=== PATIENT | male | born 1945 | race Caucasian/White ===

== ENCOUNTER 2017-06-23 20:55 | Outpatient (CLI) | payer MEDICARE, OTHER | END 2017-06-23 20:56 | disposition critical access hospital (66) | LOC: EMS 20:55 | PROVIDERS: ATTEND Surgery | DX: R60.9 Edema, unspecified (principal); R20.0 Anesthesia of skin; R21 Rash and other nonspecific skin eruption | CPT/HCPCS: A0425; A0427 ==

== ENCOUNTER 2017-06-23 21:11 | Emergency (ER) | payer MEDICARE, OTHER ==
[2017-06-23] MEDS ORDERED: FAMOTIDINE 20 MG/2 ML VIAL IVP STA (21:20)
[2017-06-23] MEDS ORDERED: methylPREDNISolone SUCCINATE 125 MG/2 ML VIAL IVP STA (21:20)
--- NOTE | 2017-06-23 23:00 | ED Physician Documentation ---
PD HPI SKIN - Stated complaint Stated Complaint: ALLERGIC REACTION - Chief complaint Chief Complaint: Allergic Rx - History obtained from History obtained from: Patient, EMS - History of Present Illness Timing - onset: Today Timing - details: Abrupt onset Location: RUE, LUE Quality / character: Itchy, Swelling Improved by: Benadryl Contributing factors: Exposed to food Similar symptoms before: No diagnosis Recently seen: Not recently seen - Additional information Additional information: Patient is a 72 year old male who is presenting to the emergency department for allergic reaction. patient states that he ate about 12 cashews and then his face started swelling. patient denies having an allergy to cashews in the past. patient took 50mg of benadryl before calling ems. When ems arrived patient did have facial swelling and redness of his hands. Upon initial evaluation in the emergency department patient had swollen upper lip but stated that he was starting to feel better. Review of Systems Constitutional: denies: Fever, Chills Eyes: denies: Discharge, Irritation Ears: reports: Reviewed and negative Nose: denies: Rhinorrhea / runny nose Throat: denies: Sore throat Cardiac: denies: Chest pain / pressure, Palpitations Respiratory: denies: Wheezing GI: reports: Abdominal Pain. denies: Nausea, Vomiting : reports: Reviewed and negative Skin: reports: Rash Neurologic: denies: Headache Immunocompromised: denies: Immunocompromised PD PAST MEDICAL HISTORY - Past Medical History Past Medical History: Yes Cardiovascular: Hypertension Respiratory: Other Neuro: None Endocrine/Autoimmune: None GI: None : None HEENT: None Psych: None Musculoskeletal: None Derm: Psoriasis, Rosacea - Past Surgical History Past Surgical History: No - Present Medications Home Medications: Ambulatory Orders Medication Instructions Recorded Confirmed Aspirin 81 06/23/17 Epinephrine [Epipen 2-Tushar] 0.3 mg IJ ONCE #1 auto.injct 06/23/17 Hydrochlorothiazide 12.5 mg PO DAILY 06/23/17 06/23/17 NIFEdipine [Procardia Xl] 30 mg PO DAILY 06/23/17 06/23/17 Sildenafil Citrate [Viagra] 06/23/17 - Allergies Allergies/Adverse Reactions: Allergies Allergy/AdvReac Type Severity Reaction Status Date / Time Penicillins Allergy Unknown Verified 06/23/17 21:18 - Social History Does the pt smoke?: No Smoking Status: Never smoker Does the pt drink ETOH?: Yes ETOH Use: Wine Does the pt have substance abuse?: No - Immunizations Immunizations are current?: Yes - POLST Patient has POLST: No PD ED PE NORMAL - Vitals Vital signs reviewed: Yes - General General: Alert and oriented X 3, No acute distress - HEENT HEENT: Atraumatic, PERRL - Cardiac Cardiac: RRR - Respiratory Respiratory: No respiratory distress - Abdomen Abdomen: Soft - Neuro Neuro: Alert and oriented X 3 Eye Opening: Spontaneous Motor: Obeys Commands Verbal: Oriented GCS Score: 15 PD ED PE EXPANDED - HEENT HEENT: Other (swelling of the upper lip and tongue, no throat swelling) - Respiratory Respiratory: No: Accessory mm use, Retractions, Wheezing - Derm Derm: Rash (mild erythema of bilateral hands) Results - Vitals Vitals: Vital Signs - 24 hr 06/23/17 06/23/17 06/23/17 21:15 21:58 22:22 Temperature 36.6 C Heart Rate 83 57 L 58 L Respiratory 18 16 18 Rate Blood Pressure 111/74 101/83 H 111/65 O2 Saturation 92 92 94 Oxygen O2 Source Room air PD MEDICAL DECISION MAKING - ED course Complexity details: reviewed old records, reviewed results, re-evaluated patient , considered differential, d/w patient, d/w family ED course: Patient was seen and examined at bedside. patient had taken benadryl in the field and was already feeling better. patient was treated with solumedrol and pepcid. Patient was observed in the emergency department for two hours. Patient's symptoms continued to improve. Patient had no swelling or airway involvement. patient required no further work up and was stable for discharge with outpatient follow up. Departure - Departure Disposition: 01 Home, Self Care Clinical Impression: Allergic urticaria Condition: Good Instructions: ED Allergic Reaction General Other Follow-Up: primary,care provider [Other] - Within 1 week Prescriptions: Epinephrine [Epipen 2-Tushar] 0.3 mg IJ ONCE #1 auto.injct Comments: Your symptoms today are being caused by an allergic reaction, likely the cashews. You should avoid cashew in the future. If you have another allergic reaction you can take benadryl and pepcid. If your symptoms are severe you can use the epipen. You should come to the emergency department for facial or throat swelling, difficulty breathing, nausea or vomiting that coincides with an allergic reaction.
[2017-06-23 23:56] VITALS: BP 146/62
== END 2017-06-23 23:58 | disposition home or self-care (01) ==
LOC: EDUNIT# → ED 21:11
DX: L50.0 Allergic urticaria (principal); L71.9 Rosacea, unspecified; L40.9 Psoriasis, unspecified; I10 Essential (primary) hypertension; Z79.82 Long term (current) use of aspirin
CPT/HCPCS: 93005; 96374; 99284

== ENCOUNTER 2017-09-06 10:01 | Outpatient (CLI) | payer MEDICARE, OTHER ==
--- NOTE | 2017-09-06 12:17 | XRAY Report ---
Procedure Date: 09/06/2017 Accession Number: [id number] / [id number] Procedure: XR - Chest 2 View X-Ray CPT Code: 41853 FULL RESULT: EXAM: CHEST RADIOGRAPHY EXAM DATE: 09/06/2017 10:13 AM. CLINICAL HISTORY: Cough for 4 days. COMPARISON: 07/01/2015. TECHNIQUE: 2 views. FINDINGS: Lungs/Pleura: Bilateral lower lobe airspace consolidation, right greater than left. No pleural effusions. No pneumothorax. No vascular congestion. Mediastinum: Heart size is normal. Aortic atherosclerosis. Other: Degenerative changes of the thoracic spine. IMPRESSION: 1. Bilateral lower lobe pneumonia. RADIA
== END 2017-09-06 10:02 | disposition home or self-care (01) ==
LOC: DI 10:01
PROVIDERS: ATTEND Internal Medicine
DX: J18.9 Pneumonia, unspecified organism (principal)
CPT/HCPCS: 71046

== ENCOUNTER 2017-11-30 08:00 | Outpatient (CLI) | payer MEDICARE, OTHER ==
[2017-11-30 12:54] LABS: BASOPHILS % (AUTO) 0.9 %; EOSINOPHILS # (AUTO) 0.3 10^3/uL (0.0-0.7); EOSINOPHILS % (AUTO) 7.8 %; HGB - HEMOGLOBIN 14.3 g/dL (14.0-18.0); LYMPHOCYTES # (AUTO) 1.2 10^3/uL (1.5-3.5); LYMPHOCYTES % (AUTO) 29.3 %; MEAN CORPUSCULAR HEMOGLOBIN 30.2 pg (27.0-31.0); MEAN CORPUSCULAR HGB CONC 34.3 g/dL (32.0-36.0); MEAN CORPUSCULAR VOLUME 88.1 fL (80.0-94.0); MONOCYTES # (AUTO) 0.4 10^3/uL (0.0-1.0); MONOCYTES % (AUTO) 8.8 %; NEUTROPHILS # (AUTO) 2.1 10^3/uL (1.5-6.6); NEUTROPHILS % (AUTO) 53.2 %; PLT - PLATELET COUNT 244 10^3/uL (130-450); RED BLOOD COUNT 4.73 10^6/uL (4.70-6.10); RED CELL DISTRIBUTION WIDTH 14.8 % (12.0-15.0)
[2017-11-30 13:13] LABS: ALBUMIN 4.3 g/dL (3.2-5.5); ALBUMIN/GLOBULIN RATIO 1.5 (1.0-2.2); ALKALINE PHOSPHATASE 55 IU/L (42-121); ALT ALANINE AMINOTRANSFERASE 23 IU/L (10-60); AST ASPARTATE AMINOTRANSFERASE 26 IU/L (10-42); BILIRUBIN,TOTAL 0.6 mg/dL (0.2-1.0); BUN - BLOOD UREA NITROGEN 22 mg/dL (6-20); CALCIUM 9.4 mg/dL (8.5-10.3); CARBON DIOXIDE - CO2 29 mmol/L (21-32); CHLORIDE 100 mmol/L (101-111); CHOL/HDL RATIO 2.8 (<5.0); CHOLESTEROL 223 mg/dL; CREATININE 0.8 mg/dL (0.6-1.2); GFR - MDRD 95 (>89); GLUCOSE 87 mg/dL (70-100); HDL CHOLESTEROL 81 mg/dL; LDL CHOLESTEROL,CALCULATED 131 mg/dL; LDL/HDL RATIO 1.6 (<3.6); SODIUM 137 mmol/L (135-145); TOTAL PROTEIN 7.2 g/dL (6.7-8.2); VLDL CHOLESTEROL 11 mg/dL
[2017-12-01 13:52] LABS: HEPATITIS C ANTIBODY NON-REACTIVE (NON-REACTIVE)
== END 2017-11-30 08:01 ==
LOC: LAB.N 08:00
PROVIDERS: ATTEND Internal Medicine
DX: J45.909 Unspecified asthma, uncomplicated (principal); E78.5 Hyperlipidemia, unspecified; N52.9 Male erectile dysfunction, unspecified; Z12.5 Encounter for screening for malignant neoplasm of prostate; I10 Essential (primary) hypertension; Z79.899 Other long term (current) drug therapy; Z72.89 Other problems related to lifestyle
CPT/HCPCS: 80053; 80061; 84443; 85025; 86803; G0103; 36415; 83721; 84153

== ENCOUNTER 2018-02-01 08:00 | Outpatient (CLI) | payer MEDICARE, OTHER ==
[2018-02-01 12:42] LABS: ALT ALANINE AMINOTRANSFERASE 55 IU/L (10-60); AST ASPARTATE AMINOTRANSFERASE 41 IU/L (10-42); LDL CHOLESTEROL,DIRECT 97 mg/dL
== END 2018-02-01 08:01 | disposition home or self-care (01) ==
LOC: LAB.N 08:00
PROVIDERS: ATTEND Internal Medicine
DX: E78.5 Hyperlipidemia, unspecified (principal)
CPT/HCPCS: 36415; 83721; 84450; 84460

== ENCOUNTER 2018-02-24 09:31 | Day surgery (SDC) | payer MEDICARE, OTHER ==
[2018-02-24] MEDS ORDERED: LACTATED RINGERS 1,000 ML IV ONE (10:00)
[2018-02-24] MEDS ORDERED: fentaNYL 100 MCG/2 ML VIAL IVP ONE (11:10)
[2018-02-24] MEDS ORDERED: MIDAZOLAM 2 MG/2 ML VIAL IVP ONE (11:10)
[2018-02-24 12:01] VITALS: BP 133/66
== END 2018-02-24 09:32 | disposition home or self-care (01) ==
LOC: SDS 09:31
PROVIDERS: ATTEND Internal Medicine Gastroenterology
PROC: 0DBL8ZZ Excision of Transverse Colon, Via Natural or Artificial Opening Endoscopic (ICD-10-PCS; principal; 2018-02-24 10:45)
DX: Z12.11 Encounter for screening for malignant neoplasm of colon (principal); D12.3 Benign neoplasm of transverse colon; K57.30 Diverticulosis of large intestine without perforation or abscess without bleeding; K64.8 Other hemorrhoids; I10 Essential (primary) hypertension; Z86.010 Personal history of colon polyps
CPT/HCPCS: 45385; J7120

== ENCOUNTER 2018-05-30 10:17 | Emergency (ER) | payer MEDICARE, OTHER ==
[2018-05-30] MEDS ORDERED: IPRATROPIUM/ALBUTEROL 3 ML NEB INH STA (10:31)
--- NOTE | 2018-05-30 10:35 | ED Physician Documentation ---
PD HPI URI - Stated complaint Stated Complaint: CONGESTION/COUGH - Chief complaint Chief Complaint: Resp - History obtained from History obtained from: Patient - History of Present Illness Timing - onset: How many weeks ago (1) Timing duration: Weeks (1) Timing details: Gradual onset Pain level max: 0 Pain level now: 0 Associated symptoms: Nasal congestion, Rhinorrhea, Dry cough, Dyspnea (wheezing, not using his inhaler). No: Fever, Chills, Hemoptysis, Chest pain Contributing factors: Sick contact, Travel Improves by: Rest Worsened by: Activity, Breathing Similar symptoms before: Other (pneumonia) Recently seen: Not recently seen Review of Systems Ten Systems: 10 systems reviewed and negative Constitutional: denies: Fever, Chills GI: denies: Vomiting Skin: denies: Rash Musculoskeletal: denies: Neck pain, Back pain PD PAST MEDICAL HISTORY - Past Medical History Cardiovascular: Hypertension Respiratory: Other Endocrine/Autoimmune: None GI: None : None HEENT: None Psych: None Musculoskeletal: None Derm: Psoriasis, Rosacea - Past Surgical History Past Surgical History: No General: Colonoscopy - Present Medications Home Medications: Ambulatory Orders Medication Instructions Recorded Confirmed Aspirin 81 mg PO DAILY 06/23/17 02/23/18 EPINEPHrine [Epipen 2-Tushar] 0.3 mg IJ ONCE #1 auto.injct 06/23/17 02/23/18 Hydrochlorothiazide 12.5 mg PO DAILY 06/23/17 02/23/18 NIFEdipine [Procardia Xl] 30 mg PO DAILY 06/23/17 02/24/18 Sildenafil Citrate [Viagra] 100 mg PO ONCE 06/23/17 02/23/18 Rosuvastatin Calcium 20 mg PO 02/24/18 Benzonatate [Tessalon Perle] 100 - 200 mg PO TID PRN #30 capsule 05/30/18 Doxycycline Hyclate 100 mg PO BID #20 capsule 05/30/18 - Allergies Allergies/Adverse Reactions: Allergies Allergy/AdvReac Type Severity Reaction Status Date / Time Penicillins Allergy Unknown Verified 05/30/18 10:25 - Social History Does the pt smoke?: No Smoking Status: Never smoker Does the pt drink ETOH?: Yes Does the pt have substance abuse?: No - Immunizations Immunizations are current?: Yes - POLST Patient has POLST: No PD ED PE NORMAL - Vitals Vital signs reviewed: Yes - General General: Alert and oriented X 3, No acute distress, Well developed/nourished - HEENT HEENT: PERRL, Ears normal, Moist mucous membranes - Neck Neck: Supple, no meningeal sign - Cardiac Cardiac: RRR - Respiratory Respiratory: No respiratory distress, Other (Diffuse wheezing bilaterally) - Abdomen Abdomen: Soft, Non tender, Non distended - Derm Derm: Warm and dry, No rash - Extremities Extremities: No edema, No calf tenderness / cord - Neuro Neuro: Alert and oriented X 3 - Psych Psych: Normal mood, Normal affect Results - Vitals Vitals: Vital Signs - 24 hr 05/30/18 05/30/18 05/30/18 10:23 10:50 11:30 Temperature 36.3 C L 37.0 C Heart Rate 90 76 92 Respiratory 20 20 18 Rate Blood Pressure 183/93 H 178/86 H O2 Saturation 97 95 Oxygen O2 Source Room air - Rads (name of study) cxr Radiology: Prelim report reviewed, EMP read contemporaneously, See rad report (RML and RLL Infiltrate consistent with pneumonia) PD MEDICAL DECISION MAKING - ED course Complexity details: reviewed results, re-evaluated patient, considered differential, d/w patient ED course: 72-year-old male with pneumonia. Will place on doxycycline. He is well- appearing, nontoxic. Feels better after nebulizer treatment here and wheezing resolved. Patient counseled regarding signs and symptoms for which I believe and urgent re-evaluation would be necessary. Patient with good understanding of and agreement to plan and is comfortable going home at this time This document was made in part using voice recognition software. While efforts are made to proofread this document, sound alike and grammatical errors may occur. Patient has an albuterol inhaler at home Departure - Departure Disposition: Home, Self Care Clinical Impression: Pneumonia Qualifiers: Pneumonia type: due to unspecified organism Laterality: right Lung location: lower lobe of lung Qualified Code(s): J18.1 - Lobar pneumonia, unspecified organism Condition: Good Instructions: ED Pneumonia Adult Follow-Up: Ian Green MD [Primary Care Provider] - Within 1 week Prescriptions: Benzonatate [Tessalon Perle] 100 - 200 mg PO TID PRN #30 capsule PRN Reason: Cough Doxycycline Hyclate 100 mg PO BID #20 capsule Comments: Take all antibiotics until gone. Return if you worsen. Follow-up with your doctor for further care. Discharge Date/Time: 05/30/18 11:30
--- NOTE | 2018-05-30 11:13 | XRAY Report ---
Reason: cough, h/o pneumonia Procedure Date: 05/30/2018 Accession Number: [id number] / [id number] Procedure: XR - Chest 2 View X-Ray CPT Code: 64226 FULL RESULT: EXAM: CHEST RADIOGRAPHY EXAM DATE: 05/30/2018 11:04 AM. CLINICAL HISTORY: Cough, h/o pneumonia. COMPARISON: CHEST 2 VIEW 09/06/2017 10:03 AM. TECHNIQUE: 2 views. FINDINGS: Lungs/Pleura: Infiltrate right medial lung base right middle lobe or right lower lobe. No effusion. No pneumothorax. Left lung normally aerated. Mediastinum: Heart and mediastinal contours are unremarkable. Other: DJD spine IMPRESSION: Right middle lobe or right lower lobe infiltrate RADIA
[2018-05-30 11:31] VITALS: BP 178/86
== END 2018-05-30 11:30 | disposition home or self-care (01) ==
LOC: ED 10:17
DX: J18.1 Lobar pneumonia, unspecified organism (principal); I10 Essential (primary) hypertension; Z79.82 Long term (current) use of aspirin
CPT/HCPCS: 71046; 94640; 94664; 99283; 99284

== ENCOUNTER 2019-03-14 08:00 | Outpatient (CLI) | payer MEDICARE, OTHER ==
[2019-03-14 15:46] LABS: BASOPHILS # (AUTO) 0.1 10^3/uL (0.0-0.1); BASOPHILS % (AUTO) 0.9 %; EOSINOPHILS # (AUTO) 0.5 10^3/uL (0.0-0.7); EOSINOPHILS % (AUTO) 8.6 %; HGB - HEMOGLOBIN 14.3 g/dL (14.0-18.0); LYMPHOCYTES # (AUTO) 1.5 10^3/uL (1.5-3.5); LYMPHOCYTES % (AUTO) 26.9 %; MEAN CORPUSCULAR HEMOGLOBIN 29.4 pg (27.0-31.0); MEAN CORPUSCULAR HGB CONC 32.7 g/dL (32.0-36.0); MEAN CORPUSCULAR VOLUME 89.7 fL (80.0-94.0); MEAN PLATELET VOLUME 11.1 fL (7.4-11.4); MONOCYTES # (AUTO) 0.5 10^3/uL (0.0-1.0); MONOCYTES % (AUTO) 9.4 %; NEUTROPHILS # (AUTO) 3.1 10^3/uL (1.5-6.6); PLT - PLATELET COUNT 245 10^3/uL (130-450); RED BLOOD COUNT 4.87 10^6/uL (4.70-6.10); RED CELL DISTRIBUTION WIDTH 13.4 % (12.0-15.0); WHITE BLOOD COUNT 5.7 x10^3/uL (4.8-10.8)
[2019-03-14 16:16] LABS: HB2 TOTAL 14.4 g/dL; HEMOGLOBIN A1C 0.56 g/dL; HEMOGLOBIN A1C % 5.7 % (4.6-6.2)
[2019-03-14 16:32] LABS: ALBUMIN 3.9 g/dL (3.2-5.5); ALBUMIN/GLOBULIN RATIO 1.3 (1.0-2.2); ALKALINE PHOSPHATASE 65 IU/L (42-121); ALT ALANINE AMINOTRANSFERASE 57 IU/L (10-60); AST ASPARTATE AMINOTRANSFERASE 35 IU/L (10-42); BILIRUBIN,TOTAL 0.6 mg/dL (0.2-1.0); BUN - BLOOD UREA NITROGEN 27 mg/dL (6-20); CALCIUM 8.9 mg/dL (8.5-10.3); CARBON DIOXIDE - CO2 29 mmol/L (21-32); CHLORIDE 102 mmol/L (101-111); CHOL/HDL RATIO 2.8 (<5.0); CHOLESTEROL 196 mg/dL; CREATININE 0.8 mg/dL (0.6-1.2); GFR - MDRD 94 (>89); GLUCOSE 93 mg/dL (70-100); HDL CHOLESTEROL 71 mg/dL; LDL CHOLESTEROL,CALCULATED 114 mg/dL; LDL/HDL RATIO 1.6 (<3.6); SODIUM 138 mmol/L (135-145); VLDL CHOLESTEROL 11 mg/dL
== END 2019-03-14 23:59 | disposition home or self-care (01) ==
LOC: LAB.N 08:00
PROVIDERS: ATTEND Family Medicine
DX: E78.5 Hyperlipidemia, unspecified (principal); J45.909 Unspecified asthma, uncomplicated; N52.9 Male erectile dysfunction, unspecified; L40.9 Psoriasis, unspecified; I10 Essential (primary) hypertension; Z79.899 Other long term (current) drug therapy; Z12.5 Encounter for screening for malignant neoplasm of prostate
CPT/HCPCS: 36415; 80053; 80061; 83036; 84443; 85025; G0103; 83721; 84153

== ENCOUNTER 2020-10-30 08:00 | Outpatient (CLI) | payer MEDICARE, OTHER ==
[2020-10-30 12:28] LABS: BASOPHILS % (AUTO) 0.6 %; EOSINOPHILS # (AUTO) 0.2 10^3/uL (0.0-0.7); HCT - HEMATOCRIT 45.3 % (42.0-52.0); HGB - HEMOGLOBIN 14.9 g/dL (14.0-18.0); LYMPHOCYTES # (AUTO) 0.9 10^3/uL (1.5-3.5); LYMPHOCYTES % (AUTO) 17.6 %; MEAN CORPUSCULAR HEMOGLOBIN 30.3 pg (27.0-31.0); MEAN CORPUSCULAR HGB CONC 32.9 g/dL (32.0-36.0); MEAN CORPUSCULAR VOLUME 92.1 fL (80.0-94.0); MEAN PLATELET VOLUME 10.7 fL (7.4-11.4); MONOCYTES # (AUTO) 0.8 10^3/uL (0.0-1.0); MONOCYTES % (AUTO) 16.2 %; NEUTROPHILS # (AUTO) 3.1 10^3/uL (1.5-6.6); PLT - PLATELET COUNT 217 10^3/uL (130-450); RED BLOOD COUNT 4.92 10^6/uL (4.70-6.10); RED CELL DISTRIBUTION WIDTH 13.2 % (12.0-15.0); WHITE BLOOD COUNT 5.1 x10^3/uL (4.8-10.8)
[2020-10-30 12:50] LABS: ALBUMIN 4.5 g/dL (3.2-5.5); ALBUMIN/GLOBULIN RATIO 1.5 (1.0-2.2); ALKALINE PHOSPHATASE 60 IU/L (42-121); ALT ALANINE AMINOTRANSFERASE 47 IU/L (10-60); AST ASPARTATE AMINOTRANSFERASE 41 IU/L (10-42); BILIRUBIN,TOTAL 0.5 mg/dL (0.2-1.0); BUN - BLOOD UREA NITROGEN 19 mg/dL (6-20); CALCIUM 9.7 mg/dL (8.5-10.3); CARBON DIOXIDE - CO2 30 mmol/L (21-32); CHLORIDE 96 mmol/L (101-111); CHOL/HDL RATIO 2.2 (<5.0); CHOLESTEROL 206 mg/dL; CREATININE 0.8 mg/dL (0.6-1.2); GFR - MDRD 94 (>89); GLUCOSE 97 mg/dL (70-100); HDL CHOLESTEROL 93 mg/dL; LDL CHOLESTEROL,CALCULATED 99 mg/dL; LDL/HDL RATIO 1.1 (<3.6); POTASSIUM 4.1 mmol/L (3.5-5.0); SODIUM 135 mmol/L (135-145); TOTAL PROTEIN 7.5 g/dL (6.7-8.2); TRIGLYCERIDES 68 mg/dL; VLDL CHOLESTEROL 14 mg/dL
[2020-10-30 12:57] LABS: THYROID STIMULATING HORMONE 1.88 uIU/mL (0.34-5.60)
== END 2020-10-30 23:59 | disposition home or self-care (01) ==
LOC: LAB.WCP 08:00
PROVIDERS: ATTEND Family Medicine
DX: Z00.00 Encounter for general adult medical examination without abnormal findings (principal); E78.5 Hyperlipidemia, unspecified; J45.909 Unspecified asthma, uncomplicated; L40.9 Psoriasis, unspecified; I10 Essential (primary) hypertension; Z12.5 Encounter for screening for malignant neoplasm of prostate
CPT/HCPCS: 36415; 80053; 80061; 84443; 85025; G0103; 83721; 84153

== ENCOUNTER 2021-12-19 14:36 | Emergency (ER) | payer MEDICARE, OTHER ==
[2021-12-19 15:04] LABS: BASOPHILS % (AUTO) 0.4 %; EOSINOPHILS # (AUTO) 0.3 10^3/uL (0.0-0.7); EOSINOPHILS % (AUTO) 3.6 %; HCT - HEMATOCRIT 44.3 % (42.0-52.0); HGB - HEMOGLOBIN 15.1 g/dL (14.0-18.0); LYMPHOCYTES # (AUTO) 1.1 10^3/uL (1.5-3.5); LYMPHOCYTES % (AUTO) 12.9 %; MEAN CORPUSCULAR HEMOGLOBIN 30.7 pg (27.0-31.0); MEAN CORPUSCULAR HGB CONC 34.1 g/dL (32.0-36.0); MEAN PLATELET VOLUME 10.2 fL (7.4-11.4); MONOCYTES % (AUTO) 12.2 %; NEUTROPHILS % (AUTO) 70.5 %; PLT - PLATELET COUNT 217 10^3/uL (130-450); RED BLOOD COUNT 4.92 10^6/uL (4.70-6.10); RED CELL DISTRIBUTION WIDTH 12.9 % (12.0-15.0); WHITE BLOOD COUNT 8.6 x10^3/uL (4.8-10.8)
--- NOTE | 2021-12-19 15:05 | XRAY Report ---
PROCEDURE: Chest 1 View X-Ray INDICATIONS: Chest Pain TECHNIQUE: One view of the chest was acquired. COMPARISON: 05/30/2018 FINDINGS: Surgical changes and devices: None. Lungs and pleura: No pleural effusions or pneumothorax. Lungs are clear. Mediastinum: Mediastinal contours appear normal. Heart size is normal. Bones and chest wall: No suspicious bony lesions. Overlying soft tissues appear unremarkable. IMPRESSION: No acute cardiopulmonary process demonstrated radiographically. Reviewed by: George Guardado MD on 12/19/2021 3:03 PM PDT Approved by: George Guardado MD on 12/19/2021 3:03 PM PDT Station ID: [id number]
[2021-12-19] MEDS ORDERED: IPRATROPIUM/ALBUTEROL 3 ML NEB INH STA (15:09)
[2021-12-19 15:23] LABS: ALBUMIN 4.5 g/dL (3.2-5.5); ALBUMIN/GLOBULIN RATIO 1.3 (1.0-2.2); BILIRUBIN,TOTAL 0.5 mg/dL (0.2-1.0); CALCIUM 9.4 mg/dL (8.5-10.3); CREATININE 0.9 mg/dL (0.6-1.2); POTASSIUM 4.1 mmol/L (3.5-5.0)
[2021-12-19] MEDS ORDERED: predniSONE 20 MG TABLET PO STA (15:39)
--- NOTE | 2021-12-19 15:52 | ED Physician Documentation ---
PD HPI DYSPNEA - Stated complaint Stated Complaint: SOA - Chief complaint Chief Complaint: Resp - History obtained from History obtained from: Patient - Additional information Additional information: Patient is a 76-year-old male with a reported history of chronic bronchitis (due to secondhand smoke exposure as a child and while on carriers in the [place]) presenting for evaluation of shortness of air for the last week with productive cough of clear to yellow sputum. He reports being exposed to family members with COVID on Wednesday and Wednesday and has taken 4 home test which have all been negative.He has an inhaler at home Which helps at times. He denies chest pain, dizziness, fevers, abdominal pain, vomiting, leg swelling.He was seen at the walk-in clinic and was sent to the emergency department as room air saturations there were in the high 80s. On arrival his room air saturation is 93%. Review of Systems Constitutional: denies: Fever Nose: denies: Congestion Throat: denies: Sore throat Cardiac: denies: Chest pain / pressure Respiratory: reports: Dyspnea, Cough GI: denies: Abdominal Pain, Vomiting : denies: Dysuria Musculoskeletal: denies: Back pain Neurologic: denies: Headache PD PAST MEDICAL HISTORY - Past Medical History Past Medical History: Yes Cardiovascular: Hypertension Respiratory: Pneumonia, Shortness of breath, Other Endocrine/Autoimmune: None GI: None : None HEENT: None Psych: None Musculoskeletal: None Derm: Psoriasis, Rosacea Other Past Medical History: bronchitis - Past Surgical History Past Surgical History: Yes General: Colonoscopy - Present Medications Home Medications: Ambulatory Orders Medication Instructions Recorded Confirmed Aspirin 81 mg PO DAILY 06/23/17 02/23/18 EPINEPHrine [Epipen 2-Tushar] 0.3 mg IJ ONCE #1 auto.injct 06/23/17 02/23/18 NIFEdipine [Procardia Xl] 30 mg PO DAILY 06/23/17 02/24/18 Sildenafil Citrate [Viagra] 100 mg PO ONCE 06/23/17 02/23/18 hydroCHLOROthiazide 12.5 mg PO DAILY 06/23/17 02/23/18 [Hydrochlorothiazide] Rosuvastatin Calcium 20 mg PO 02/24/18 Benzonatate [Tessalon Perle] 100 - 200 mg PO TID PRN #30 capsule 05/30/18 Doxycycline Hyclate 100 mg PO BID #20 capsule 05/30/18 Benzonatate [Tessalon] 100 mg PO TID PRN #12 cap 12/19/21 predniSONE [Deltasone] 60 mg PO DAILY 4 Days #12 tablet 12/19/21 - Allergies Allergies/Adverse Reactions: Allergies Allergy/AdvReac Type Severity Reaction Status Date / Time Penicillins Allergy Unknown Verified 05/30/18 10:25 - Social History Does the pt smoke?: No Smoking Status: Never smoker Does the pt drink ETOH?: Yes Does the pt have substance abuse?: No - Immunizations Immunizations are current?: Yes - POLST Patient has POLST: No PD ED PE NORMAL - General General: Alert and oriented X 3, No acute distress, Well developed/nourished - HEENT HEENT: Atraumatic, Moist mucous membranes - Neck Neck: Supple, no meningeal sign - Cardiac Cardiac: RRR, Strong equal pulses - Respiratory Respiratory: No respiratory distress, Other (Diffuse expiratory wheezing) - Abdomen Abdomen: Non tender, Non distended - Derm Derm: Warm and dry - Extremities Extremities: No edema - Neuro Neuro: Normal speech Results - Vitals Vitals: Vital Signs - 24 hr 12/19/21 12/19/21 12/19/21 14:51 15:54 16:41 Temperature 36.8 C Heart Rate 68 88 61 Respiratory 21 20 22 Rate Blood Pressure 159/67 H 174/67 H O2 Saturation 93 92 12/19/21 16:45 Temperature 36.8 C Heart Rate 61 Respiratory 22 Rate Blood Pressure 174/67 H O2 Saturation 92 Oxygen O2 Source Room air - EKG (time done) 1450 Rate: Rate (enter#) (66) Rhythm: NSR [place]: Normal Intervals: No: Prolonged QT Ischemia: No: ST elevation c/w ischemia - Labs Labs: Laboratory Tests 12/19/21 12/19/21 12/19/21 14:55 15:00 15:00 WBC 8.6 RBC 4.92 Hgb 15.1 Hct 44.3 MCV 90.0 MCH 30.7 MCHC 34.1 RDW 12.9 Plt Count 217 MPV 10.2 Neut # (Auto) 6.0 Lymph # (Auto) 1.1 L Humphreys # (Auto) 1.0 Eos # (Auto) 0.3 Baso # (Auto) 0.0 Absolute Nucleated RBC 0.00 Nucleated RBC % 0.0 Sodium 137 Potassium 4.1 Chloride 97 L Carbon Dioxide 29 Anion Gap 11.0 BUN 18 Creatinine 0.9 Estimated GFR (MDRD) 82 L Glucose 96 Calcium 9.4 Total Bilirubin 0.5 AST 31 ALT 31 Alkaline Phosphatase 57 Troponin I High Sens B-Natriuretic Peptide Total Protein 8.0 Albumin 4.5 Globulin 3.5 Albumin/Globulin Ratio 1.3 Lipase 29 Nasal Adenovirus (PCR) NOT DETECTED Nasal B. parapertussis DNA (PCR) NOT DETECTED Nasal Coronavir 229E PCR NOT DETECTED Nasal Coronavir HKU1 PCR NOT DETECTED Nasal Coronavir NL63 PCR NOT DETECTED Nasal Coronavir OC43 PCR NOT DETECTED Nasal Enterovir/Rhinovir PCR DETECTED A Nasal Influenza B PCR NOT DETECTED Nasal Influenza A PCR NOT DETECTED Nasal Parainfluen 1 PCR NOT DETECTED Nasal Parainfluen 2 PCR NOT DETECTED Nasal Parainfluen 3 PCR NOT DETECTED Nasal Parainfluen 4 PCR NOT DETECTED Nasal RSV (PCR) NOT DETECTED Nasal B.pertussis DNA PCR NOT DETECTED Nasal C.pneumoniae (PCR) NOT DETECTED Eduard Human Metapneumo PCR NOT DETECTED Nasal M.pneumoniae (PCR) NOT DETECTED Nasal SARS-CoV-2 (PCR) NOT DETECTED 12/19/21 12/19/21 15:00 15:00 WBC RBC Hgb Hct MCV MCH MCHC RDW Plt Count MPV Neut # (Auto) Lymph # (Auto) Humphreys # (Auto) Eos # (Auto) Baso # (Auto) Absolute Nucleated RBC Nucleated RBC % Sodium Potassium Chloride Carbon Dioxide Anion Gap BUN Creatinine Estimated GFR (MDRD) Glucose Calcium Total Bilirubin AST ALT Alkaline Phosphatase Troponin I High Sens 11.7 B-Natriuretic Peptide 58 Total Protein Albumin Globulin Albumin/Globulin Ratio Lipase Nasal Adenovirus (PCR) Nasal B. parapertussis DNA (PCR) Nasal Coronavir 229E PCR Nasal Coronavir HKU1 PCR Nasal Coronavir NL63 PCR Nasal Coronavir OC43 PCR Nasal Enterovir/Rhinovir PCR Nasal Influenza B PCR Nasal Influenza A PCR Nasal Parainfluen 1 PCR Nasal Parainfluen 2 PCR Nasal Parainfluen 3 PCR Nasal Parainfluen 4 PCR Nasal RSV (PCR) Nasal B.pertussis DNA PCR Nasal C.pneumoniae (PCR) Eduard Human Metapneumo PCR Nasal M.pneumoniae (PCR) Nasal SARS-CoV-2 (PCR) PD MEDICAL DECISION MAKING - ED course Complexity details: reviewed results, re-evaluated patient, d/w patient, d/w family ED course: Patient presenting for evaluation of shortness of breath and cough. Appears to have URI symptoms. Oxygen saturations appear stable here on room air. He has diffuse wheezing on exam. Patient given neb treatments and started on p.o. steroids. Work-up is negative for signs of heart failure, cardiac ischemia. I doubt pulmonary embolism. Respiratory panel is positive for rhinovirus. I believe his symptoms are related to bronchitis. I do not see indications for antibiotics at this time. Patient is feeling better here. Discussed treatment plan and counseled on Concerning symptoms to return for. 1631 -Patient is feeling better after neb treatments. Feels that he is breathing more comfortably. Lung sounds are significantly improved with only minimal wheezing. Patient's oxygen saturations on room air in the mid 90s. I discussed lab results including respiratory panel positive for rhinovirus. Departure - Departure Disposition: 01 Home, Self Care Clinical Impression: Bronchitis, Rhinovirus infection Condition: Stable Instructions: ED Bronchitis Asthmatic, ED Upper Resp Infec No Abx Tx Follow-Up: Ian Green MD [Primary Care Provider] - Prescriptions: predniSONE [Deltasone] 60 mg PO DAILY 4 Days #12 tablet Benzonatate [Tessalon] 100 mg PO TID PRN #12 cap PRN Reason: Cough Comments: You were evaluated for shortness of breath and cough. You are found to be wheezing. Your wheezing has improved with breathing treatments. I have also started you on a prednisone which may help with your bronchitis. Your chest x- ray does not show signs of pneumonia and your labs are reassuring including ma rkers of heart failure and heart attacks. A respiratory panel was obtained which is negative for COVID but is positive for a another common cold virus called Rhinovirus/Enterovirus. Unfortunately, antibiotics will not help with viral infections. I sent a prescription for cough medication also to [facility] in [place]. Please keep this away from children as it can be deadly if children were to ingest it by accident. If you have any worsening symptoms please return to the emergency department. Discharge Date/Time: 12/19/21 16:51
[2021-12-19 16:22] LABS: B. PARAPERTUSSIS- RESP PCR PAN NOT DETECTED; B. PERTUSSIS- RESP PCR PANEL NOT DETECTED; C. PNEUMONIAE- RESP PCR PANEL NOT DETECTED; CORONAVIRUS 229E-RESP PCR NOT DETECTED; CORONAVIRUS HKU1-RESP PCR NOT DETECTED; CORONAVIRUS NL63-RESP PCR NOT DETECTED; CORONAVIRUS OC43-RESP PCR NOT DETECTED; HUMAN METAPNEUMOVIRUS NOT DETECTED; INFLUENZA A- RESP PCR PANEL NOT DETECTED; INFLUENZA B - RESP PCR PANEL NOT DETECTED; M. PNEUMONIAE- RESP PCR PANEL NOT DETECTED; PARAINFLUENZA VIRUS 1 NOT DETECTED; PARAINFLUENZA VIRUS 2 NOT DETECTED; PARAINFLUENZA VIRUS 3 NOT DETECTED; PARAINFLUENZA VIRUS 4 NOT DETECTED; RHINOVIRUS/ENTEROVIRUS DETECTED; RSV- RESP PCR PANEL NOT DETECTED; SARS-CoV-2 -RESP PCR PANEL NOT DETECTED
[2021-12-19 16:42] VITALS: BP 174/67
== END 2021-12-19 16:51 | disposition home or self-care (01) ==
LOC: ED 14:36
DX: B34.8 Other viral infections of unspecified site (principal); J40 Bronchitis, not specified as acute or chronic; Z20.822 Contact with and (suspected) exposure to COVID-19
CPT/HCPCS: 36415; 71045; 80053; 83690; 83880; 84484; 85025; 87633; 93005; 94640; 99284; J7512

== ENCOUNTER 2021-12-23 11:32 | Emergency (ER) | payer MEDICARE, OTHER ==
[2021-12-23 11:43] VITALS: BP 144/89
[2021-12-23] MEDS ORDERED: IPRATROPIUM/ALBUTEROL 3 ML NEB INH STA (12:03)
--- NOTE | 2021-12-23 12:06 | ED Physician Documentation ---
PD HPI URI - Stated complaint Stated Complaint: CONGESTION,FEVER - Chief complaint Chief Complaint: Resp - History obtained from History obtained from: Patient - History of Present Illness Timing - onset: How many weeks ago (1) Timing duration: Weeks (1) Timing details: Gradual onset Pain level max: 0 Pain level now: 0 Associated symptoms: Fever (today), Nasal congestion, Rhinorrhea, Dry cough, Dyspnea (wheezing) Contributing factors: Sick contact (family sick with same) Improves by: MDI/nebulizer (albuterol) Worsened by: Activity Similar symptoms before: Diagnosis (rhinovirus dx 3 days ago) Recently seen: Emergency Dept Review of Systems Cardiac: denies: Chest pain / pressure, Palpitations GI: denies: Abdominal Pain, Nausea, Vomiting, Diarrhea Skin: denies: Rash Musculoskeletal: denies: Neck pain, Back pain Neurologic: denies: Headache PD PAST MEDICAL HISTORY - Past Medical History Cardiovascular: Hypertension Respiratory: Pneumonia, Shortness of breath, Other Endocrine/Autoimmune: None GI: None : None HEENT: None Psych: None Musculoskeletal: None Derm: Psoriasis, Rosacea - Past Surgical History Past Surgical History: Yes General: Colonoscopy - Present Medications Home Medications: Ambulatory Orders Medication Instructions Recorded Confirmed Aspirin 81 mg PO DAILY 06/23/17 12/23/21 EPINEPHrine [Epipen 2-Tushar] 0.3 mg IJ ONCE #1 auto.injct 06/23/17 12/23/21 NIFEdipine [Procardia Xl] 30 mg PO DAILY 06/23/17 12/23/21 Sildenafil Citrate [Viagra] 100 mg PO ONCE 06/23/17 12/23/21 hydroCHLOROthiazide 12.5 mg PO DAILY 06/23/17 12/23/21 [Hydrochlorothiazide] Rosuvastatin Calcium 20 mg PO DAILY 02/24/18 12/23/21 Benzonatate [Tessalon] 100 mg PO TID PRN #12 cap 12/19/21 12/23/21 predniSONE [Deltasone] 60 mg PO DAILY 4 Days #12 tablet 12/19/21 12/23/21 predniSONE [Deltasone] 10 mg PO [id number] #42 tab 12/23/21 - Allergies Allergies/Adverse Reactions: Allergies Allergy/AdvReac Type Severity Reaction Status Date / Time Penicillins Allergy Rash Verified 12/23/21 11:41 tree nut Allergy Anaphylaxis Verified 12/23/21 11:41 - Social History Does the pt smoke?: No Smoking Status: Never smoker Does the pt drink ETOH?: Yes Does the pt have substance abuse?: No - Immunizations Immunizations are current?: Yes - POLST Patient has POLST: No PD ED PE NORMAL - Vitals Vital signs reviewed: Yes - General General: Alert and oriented X 3, No acute distress, Well developed/nourished - HEENT HEENT: PERRL, Ears normal, Moist mucous membranes, Pharynx benign - Neck Neck: Supple, no meningeal sign - Cardiac Cardiac: RRR - Respiratory Respiratory: No respiratory distress, Other (diffuse wheezing B) - Abdomen Abdomen: Soft, Non tender, Non distended - Derm Derm: Warm and dry, No rash - Extremities Extremities: No edema - Neuro Neuro: Alert and oriented X 3 - Psych Psych: Normal mood, Normal affect Results - Vitals Vitals: Vital Signs - 24 hr 12/23/21 12/23/21 11:41 12:22 Temperature 37.4 C Heart Rate 90 73 Respiratory 22 16 Rate Blood Pressure 144/89 H O2 Saturation 95 Oxygen O2 Source Room air - Rads (name of study) cxr Radiology: Final report received, EMP read contemporaneously, See rad report (No acute abnormality) PD MEDICAL DECISION MAKING - ED course Complexity details: reviewed results, re-evaluated patient, considered differential, d/w patient ED course: Patient is well-appearing, nontoxic. Afebrile. No hypoxia. No respiratory dis tress. Wheezing resolved after nebulizer treatment here. He will follow-up with his doctor for further care. Symptoms appear consistent with continued rhinovirus infection. No indication for antibiotics. Negative COVID test 3 days ago. Patient counseled regarding signs and symptoms for which I believe and urgent re-evaluation would be necessary. Patient with good understanding of and agreement to plan and is comfortable going home at this time This document was made in part using voice recognition software. While efforts are made to proofread this document, sound alike and grammatical errors may occur. Departure - Departure Disposition: 01 Home, Self Care Clinical Impression: Rhinovirus infection Condition: Good Instructions: ED Viral Syndrome Follow-Up: Ian Green MD [Primary Care Provider] - Within 1 week Prescriptions: predniSONE [Deltasone] 10 mg PO [id number] #42 tab Comments: Please follow-up with your doctor as needed for further care. Please use your inhaler at least every 4-6 hours at home during the day with the spacer provided. Your x-ray does not show any evidence of pneumonia. Please follow-up with your doctor for further care. Your prescriptions were sent to [facility] in [place].
--- NOTE | 2021-12-23 12:23 | XRAY Report ---
PROCEDURE: Chest 2 View X-Ray INDICATIONS: cough, + rhinovirus TECHNIQUE: 2 view(s) of the chest. COMPARISON: Chest x-ray 12/19/2021 FINDINGS: Surgical changes and devices: None. Lungs and pleura: No pleural effusions or pneumothorax. Lungs are clear. Mediastinum: Mediastinal contours are normal. Heart size is normal. Bones and chest wall: No suspicious bony abnormalities. Soft tissues appear unremarkable. IMPRESSION: No acute pulmonary process. Reviewed by: Ana Echeverria MD on 12/23/2021 12:22 PM PDT Approved by: Ana Echeverria MD on 12/23/2021 12:22 PM PDT Station ID: [id number]
== END 2021-12-23 13:04 | disposition home or self-care (01) ==
LOC: ED 11:32
DX: B34.8 Other viral infections of unspecified site (principal); I10 Essential (primary) hypertension
CPT/HCPCS: 94640; 94664; 99282; 99283

== ENCOUNTER 2022-06-12 11:18 | Day surgery (SDC) | payer MEDICARE, OTHER ==
[2022-06-12] MEDS ORDERED: LACTATED RINGERS 1,000 ML IV ONE ×2 (11:25→13:33)
--- NOTE | 2022-06-12 12:07 | ANESTHESIA ---
Pre-Anesthesia VS, & Labs - Diagnosis colon polyps - Procedure colonoscopy Vital Signs: Temp Pulse Resp BP Pulse Ox O2 Flow Rate 36.6 C 73 16 181/98 H 97 0 06/12/22 11:34 06/12/22 11:34 06/12/22 11:34 06/12/22 11:34 06/12/22 11:34 06/12/22 11:34 Height: 5 ft 7 in Weight (kg): 81 kg Body Mass Index: 27.9 BMI Classification: Overweight - NPO >8 hours Home Medications and Allergies Home Medications: Ambulatory Orders Albuterol Sulf [Ventolin Hfa Inhaler] 1 - 2 puffs INH Q4HR PRN 06/11/22 Aspirin 81 mg PO DAILY 06/23/17 NIFEdipine [Procardia Xl] 30 mg PO DAILY 06/23/17 hydroCHLOROthiazide [Hydrochlorothiazide] 12.5 mg PO DAILY 06/23/17 Rosuvastatin Calcium 20 mg PO DAILY 02/24/18 Albuterol Sulf [Ventolin Hfa Inhaler] 1 - 2 puffs INH Q4HR PRN 06/11/22 Allergies/Adverse Reactions: Allergies Allergy/AdvReac Type Severity Reaction Status Date / Time Penicillins Allergy Rash Verified 12/23/21 11:41 tree nut Allergy Anaphylaxis Verified 12/23/21 11:41 Anes History & Medical History - Anesthetic History Anesthesia Complications: reports: No previous complications - Medical History Cardiovascular: reports: Hypertension Pulmonary: reports: Pneumonia, Shortness of breath, Other (RSV 2021) Gastrointestinal: reports: None Urinary: reports: None Neuro: reports: None Musculoskeletal: reports: None Endocrine/Autoimmune: reports: None Blood Disorders: reports: None Skin: reports: Psoriasis, Rosacea Smoking Status: Never smoker Psychosocial: reports: Alcohol (1-2 drinks per day) History of Cancer?: No - Surgical History General: reports: Colonoscopy Eyes Ears Nose Throat (EENT): reports: Cataracts Exam General: Alert, Oriented x3, Cooperative, No acute distress Dental: WNL Mouth Openin Fingerbreadth Neck Mobility: Normal Mallampati classification: III Thyromental Distance: 4-6 cm Mental/Cognitive Status: Alert/Oriented X3, Normal for patient Plan Anesthesia Type: General, Total IV Consent for Procedure(s) Verified and Reviewed: Yes Code Status: Attempt Resuscitation ASA classification: 2-Mild systemic disease Is this case an emergency?: No
[2022-06-12] MEDS ORDERED: PROPOFOL 500 MG/50 ML 500 MG/50 ML VIAL ONE (12:46)
[2022-06-12] MEDS ORDERED: MIDAZOLAM 2 MG/2 ML VIAL ONE (12:49)
--- NOTE | 2022-06-12 12:52 | HISTORY & PHYSICAL EXAMINATION ---
Chief Complaint - Chief Complaint Chief Complaint: here for colonoscopy History of Present Illness - History Obtained From Records Reviewed: yes History obtained from: pt Exam Limitations: none - History of Present Illness HPI Comment/Other: history colon polyps. here for surviellance. History - Past Medical History Cardiovascular: reports: Hypertension Respiratory: reports: Pneumonia, Shortness of breath, Other (RSV 2021) Neuro: reports: None Endocrine/Autoimmune: reports: None GI: reports: None : reports: None HEENT: reports: None Psych: reports: None Musculoskeletal: reports: None Derm: reports: Psoriasis, Rosacea MRSA Hx?: No - Past Surgical History General: reports: Colonoscopy HEENT: reports: Cataracts - POLST Patient has POLST: No Meds/Allgy - Home Medications Home Medications: Ambulatory Orders Medication Instructions Recorded Confirmed Aspirin 81 mg PO DAILY 06/23/17 06/11/22 EPINEPHrine [Epipen 2-Tushar] 0.3 mg IJ ONCE #1 auto.injct 06/23/17 06/11/22 NIFEdipine [Procardia Xl] 30 mg PO DAILY 06/23/17 06/11/22 hydroCHLOROthiazide 12.5 mg PO DAILY 06/23/17 06/11/22 [Hydrochlorothiazide] Rosuvastatin Calcium 20 mg PO DAILY 02/24/18 06/11/22 Benzonatate [Tessalon] 100 mg PO TID PRN #12 cap 12/19/21 06/11/22 Albuterol Sulf [Ventolin Hfa 1 - 2 puffs INH Q4HR PRN 06/11/22 06/11/22 Inhaler] - Allergies Allergies/Adverse Reactions: Allergies Allergy/AdvReac Type Severity Reaction Status Date / Time Penicillins Allergy Rash Verified 12/23/21 11:41 tree nut Allergy Anaphylaxis Verified 12/23/21 11:41 Review of Systems - Other Findings Other Findings: 10 pt ros as above otherwise unremarkable Exam - Vital Signs Reviewed Vital Signs: Yes Vital Signs: Vital Signs x48h Temp Pulse Resp BP Pulse Ox O2 Flow Rate 06/12/22 11:34 36.6 C 73 16 181/98 H 97 0 - Physical Exam General Appearance: positive: No acute distress, Alert Eyes Bilateral: positive: PERRL, EOMI ENT: positive: No signs of dehydration Neck: positive: No JVD, Trachea midline Respiratory: positive: No respiratory distress, Breath sounds nml Cardiovascular: positive: Regular rate & rhythm Abdomen: positive: Non-tender, No distention Neurologic/Psychiatric: positive: Oriented x3 Conclusion/Plan - Problem List (1) History of adenomatous polyp of colon Conclusion/Plan: plan colonoscopy. parq held and consent obtained
[2022-06-12 14:02] VITALS: BP 135/75
--- NOTE | 2022-06-12 15:17 | ANESTHESIA POST OP EVALUATION ---
Anesthesia Post Eval - Post Anesthesia Eval Vitals: Last Vital Signs Temp 36.2 C L 06/12/22 13:55 Pulse 53 L 06/12/22 13:55 Resp 16 06/12/22 13:55 BP 135/75 H 06/12/22 13:55 Pulse Ox 99 06/12/22 13:55 O2 Flow Rate 0 06/12/22 11:34 CV Function Including HR & BP: Stable Pain Control: Satisfactory Nausea & Vomiting: Negative Mental Status: Baseline Respiratory Status: Airway Patent Hydration Status: Satisfactory Anesthesia Complications: None
== END 2022-06-12 11:19 | disposition home or self-care (01) ==
LOC: SDS 11:18
PROVIDERS: ATTEND Surgery
PROC: 0DBL8ZZ Excision of Transverse Colon, Via Natural or Artificial Opening Endoscopic (ICD-10-PCS; principal; 2022-06-12 13:00)
DX: Z12.11 Encounter for screening for malignant neoplasm of colon (principal); D12.3 Benign neoplasm of transverse colon; K57.30 Diverticulosis of large intestine without perforation or abscess without bleeding
CPT/HCPCS: 45380; J7120

== ENCOUNTER 2022-11-02 07:19 | Outpatient (CLI) | payer MEDICARE, OTHER ==
[2022-11-02 12:34] LABS: BASOPHILS % (AUTO) 0.9 %; EOSINOPHILS # (AUTO) 0.4 10^3/uL (0.0-0.7); EOSINOPHILS % (AUTO) 8.5 %; HCT - HEMATOCRIT 43.5 % (42.0-52.0); HGB - HEMOGLOBIN 14.4 g/dL (14.0-18.0); LYMPHOCYTES # (AUTO) 1.2 10^3/uL (1.5-3.5); LYMPHOCYTES % (AUTO) 26.6 %; MEAN CORPUSCULAR HGB CONC 33.1 g/dL (32.0-36.0); MEAN CORPUSCULAR VOLUME 90.6 fL (80.0-94.0); MEAN PLATELET VOLUME 11.1 fL (7.4-11.4); MONOCYTES # (AUTO) 0.5 10^3/uL (0.0-1.0); MONOCYTES % (AUTO) 10.9 %; NEUTROPHILS # (AUTO) 2.4 10^3/uL (1.5-6.6); NEUTROPHILS % (AUTO) 52.9 %; PLT - PLATELET COUNT 241 10^3/uL (130-450); WHITE BLOOD COUNT 4.6 x10^3/uL (4.8-10.8)
[2022-11-02 12:54] LABS: THYROID STIMULATING HORMONE 1.76 uIU/mL (0.34-5.60)
[2022-11-02 13:00] LABS: ALBUMIN 4.4 g/dL (3.2-5.5); ALBUMIN/GLOBULIN RATIO 1.6 (1.0-2.2); ALKALINE PHOSPHATASE 58 IU/L (42-121); ALT ALANINE AMINOTRANSFERASE 27 IU/L (10-60); AST ASPARTATE AMINOTRANSFERASE 24 IU/L (10-42); BILIRUBIN,TOTAL 0.7 mg/dL (0.2-1.0); BUN - BLOOD UREA NITROGEN 22 mg/dL (6-20); CALCIUM 9.5 mg/dL (8.5-10.3); CARBON DIOXIDE - CO2 30 mmol/L (21-32); CHLORIDE 102 mmol/L (101-111); CHOL/HDL RATIO 2.1 (<5.0); CHOLESTEROL 195 mg/dL; CREATININE 0.8 mg/dL (0.6-1.3); GFR - MDRD 93 (>89); GLUCOSE 97 mg/dL (74-104); HDL CHOLESTEROL 93 mg/dL; LDL CHOLESTEROL,CALCULATED 91 mg/dL; POTASSIUM 4.1 mmol/L (3.5-4.5); SODIUM 138 mmol/L (135-145); TOTAL PROTEIN 7.2 g/dL (6.4-8.9); TRIGLYCERIDES 54 mg/dL (48-352); VLDL CHOLESTEROL 11 mg/dL
== END 2022-11-02 07:20 | disposition home or self-care (01) ==
LOC: LAB.N 07:19
PROVIDERS: ATTEND Family Medicine
DX: I10 Essential (primary) hypertension (principal); E78.5 Hyperlipidemia, unspecified; Z12.5 Encounter for screening for malignant neoplasm of prostate
CPT/HCPCS: 36415; 80053; 80061; 84443; 85025; G0103; 83721; 84153

== ENCOUNTER 2023-03-18 08:00 | Outpatient (CLI) | payer MEDICARE, OTHER | END 2023-03-18 08:01 | disposition home or self-care (01) | LOC: LAB.N 08:00 | PROVIDERS: ATTEND Family Medicine | DX: J20.9 Acute bronchitis, unspecified (principal) ==

== ENCOUNTER 2023-09-08 11:30 | Outpatient (CLI) | payer MEDICARE, OTHER ==
--- NOTE | 2023-09-08 20:04 | XRAY Report ---
PROCEDURE: Chest 2V INDICATIONS: ACUTE COUGH TECHNIQUE: 2 views of the chest were acquired. COMPARISON: 12/23/2021 FINDINGS: Surgical changes and devices: None. Lungs and pleura: No pleural effusions or pneumothorax. Lungs are clear. Mediastinum: Mediastinal contours appear normal. Heart size is normal. Bones and chest wall: No suspicious bony lesions. Overlying soft tissues appear unremarkable. IMPRESSION: No acute cardiopulmonary process. Reviewed by: Matthew Sorenson MD on 09/08/2023 8:02 PM PDT Approved by: Matthew Sorenson MD on 09/08/2023 8:02 PM PDT Station ID: [id number]
== END 2023-09-08 11:45 | disposition home or self-care (01) ==
LOC: DI.N 11:30
PROVIDERS: ATTEND Physician Assistant Medical
DX: R05.1 Acute cough (principal)

== ENCOUNTER 2023-11-23 07:20 | Outpatient (CLI) | payer MEDICARE, OTHER ==
[2023-11-23 12:29] LABS: BASOPHILS # (AUTO) 0.1 10^3/uL (0.0-0.1); BASOPHILS % (AUTO) 1.4 %; EOSINOPHILS # (AUTO) 0.3 10^3/uL (0.0-0.7); EOSINOPHILS % (AUTO) 7.7 %; HCT - HEMATOCRIT 44.3 % (42.0-52.0); HGB - HEMOGLOBIN 14.6 g/dL (14.0-18.0); LYMPHOCYTES % (AUTO) 22.6 %; MEAN CORPUSCULAR HEMOGLOBIN 30.4 pg (27.0-31.0); MEAN CORPUSCULAR VOLUME 92.1 fL (80.0-94.0); MEAN PLATELET VOLUME 11.1 fL (7.4-11.4); MONOCYTES # (AUTO) 0.6 10^3/uL (0.0-1.0); NEUTROPHILS # (AUTO) 2.4 10^3/uL (1.5-6.6); NEUTROPHILS % (AUTO) 53.8 %; PLT - PLATELET COUNT 223 10^3/uL (130-450); RED BLOOD COUNT 4.81 10^6/uL (4.70-6.10); RED CELL DISTRIBUTION WIDTH 13.9 % (12.0-15.0); WHITE BLOOD COUNT 4.4 x10^3/uL (4.8-10.8)
[2023-11-23 12:46] LABS: ALBUMIN 4.2 g/dL (3.2-5.5); ALBUMIN/GLOBULIN RATIO 1.4 (1.0-2.2); ALKALINE PHOSPHATASE 63 IU/L (42-121); ALT ALANINE AMINOTRANSFERASE 33 IU/L (10-60); AST ASPARTATE AMINOTRANSFERASE 28 IU/L (10-42); BILIRUBIN,TOTAL 0.5 mg/dL (0.2-1.0); BUN - BLOOD UREA NITROGEN 24 mg/dL (6-20); CALCIUM 9.6 mg/dL (8.5-10.3); CARBON DIOXIDE - CO2 33 mmol/L (21-32); CHLORIDE 100 mmol/L (101-111); CHOLESTEROL 197 mg/dL; CREATININE 0.9 mg/dL (0.6-1.3); GFR - MDRD 81 (>89); GLUCOSE 100 mg/dL (74-104); HDL CHOLESTEROL 101 mg/dL; LDL CHOLESTEROL,CALCULATED 86 mg/dL; LDL/HDL RATIO 0.9 (<3.6); POTASSIUM 4.2 mmol/L (3.5-4.5); SODIUM 136 mmol/L (135-145); TOTAL PROTEIN 7.3 g/dL (6.4-8.9); TRIGLYCERIDES 52 mg/dL; VLDL CHOLESTEROL 10 mg/dL
[2023-11-23 13:04] LABS: THYROID STIMULATING HORMONE 1.92 uIU/mL (0.34-5.60)
== END 2023-11-23 07:21 | disposition home or self-care (01) ==
LOC: LAB.N 07:20
PROVIDERS: ATTEND Family Medicine
DX: I10 Essential (primary) hypertension (principal); Z12.5 Encounter for screening for malignant neoplasm of prostate; E78.5 Hyperlipidemia, unspecified; J45.909 Unspecified asthma, uncomplicated
CPT/HCPCS: 36415; 80053; 80061; 84443; 85025; G0103; 83721; 84153